=== PATIENT | female | born 1955 | race Caucasian/White ===

== ENCOUNTER 2017-03-02 07:25 | Day surgery (SDC) | payer OTHER ==
[2017-03-02] MEDS ORDERED: MIDAZOLAM 2 MG/2 ML VIAL IVP ONE (07:36)
[2017-03-02] MEDS ORDERED: ATROPINE SULFATE 1 MG/10 ML SYR IVP ONE (07:36)
[2017-03-02] MEDS ORDERED: fentaNYL 100 MCG/2 ML INJ IVP ONE (07:36)
[2017-03-02] MEDS ORDERED: BENZOCAINE UNIT DOSE SPRAY HURRICAINE MM ONE (07:36)
[2017-03-02] MEDS ORDERED: NS 500 ML IV ONE (07:36)
--- NOTE | 2017-03-02 07:56 | CPEKG ---
Heart Rate: 82 RR Interval: 732 QRSD Interval: 132 QT Interval: 396 QTC Interval: 463 QRS [place]: 39 T Wave [place]: 17 EKG Severity - ABNORMAL ECG - EKG Impression: ATRIAL FIBRILLATION, V-RATE 75-93 EKG Impression: RIGHT BUNDLE BRANCH BLOCK Electronically Signed By: Lisa Cm 02-Mar-2017 18:04:00
[2017-03-02 08:25] LABS: INR 1.77 (0.83-1.16); PROTIME(PATIENT) 20.7 SEC (12.0-15.0)
--- NOTE | 2017-03-02 08:59 | PDHPUP ---
History & Physical Update H&P update statement: This history and physical update is based on an assessment of the patient which was completed after admission or registration (within 24 hours), but prior to the surgery/procedure. H&P update: H&P reviewed & patient examined, no change in patient's condition since H&P completed
--- NOTE | 2017-03-02 09:03 | PDANEPAE ---
ANE History of Present Illness 61 yo for radha/cv ANE Past Medical History - Cardiovascular History Hx Hypertension: Yes Hx Arrhythmias: Yes Hx CHF / Valvular Disease: Yes - Pulmonary History Hx Sleep Apnea: No ANE Review of Systems Review of Systems: - Exercise capacity METS (RN): 4 METS ANE Patient History - Allergies Allergies/Adverse Reactions: acetaminophen [From Vicodin] Allergy (Unknown, Verified 07/23/09 13:11) SEVERE ITCHING caffeine [Caffeine] Allergy (Unknown, Verified 07/15/09 08:12) Unknown hydrocodone bitartrate [From Vicodin] Allergy (Unknown, Verified 07/23/09 13:11) SEVERE ITCHING METALS Allergy (Unknown, Uncoded 07/23/09 14:10) Unknown - Home Medications Home Medications: Calcium 500 + Vit D Caplet 1 PO DAILY 03/02/17 [Last Taken 03/01/17 06:30] Co Q-10 200 mg 200 mg PO DAILY 03/02/17 [Last Taken 03/01/17 20:30] Diltiazem 24Hr Cd 180 mg PO DAILY 03/02/17 [Last Taken 03/01/17 16:30] Enzymatic Digestant 1 PO DAILY 03/02/17 [Last Taken 03/01/17 06:00] Fish Oil 1,000 mg Capsule 1 PO DAILY 03/02/17 [Last Taken 03/01/17 14:30] Folic Acid 800 mcg PO DAILY 03/02/17 [Last Taken 03/01/17 14:30] Herbals/Supplements -Info Only 03/02/17 [Last Taken 03/01/17 14:30] Levothyroxine 137 mcg PO DAILY 03/02/17 [Last Taken 03/02/17 05:30] Losartan Potassium 100 mg PO DAILY 03/02/17 [Last Taken 03/01/17 20:30] Multivitamin 1 PO DAILY 03/02/17 [Last Taken 03/01/17 14:30] Resveratrol 50 mg PO DAILY 03/02/17 [Last Taken 03/01/17 14:30] Xarelto 20 mg PO DAILY 03/02/17 [Last Taken 03/01/17 20:30] - Smoking Hx Smoking Status: Former smoker ANE Labs/Vital Signs - Labs Result Diagrams: 03/02/17 08:00 - Vital Signs Height: 5 ft 2.4 in Weight: 92.2 kg ANE Physical Exam - Airway Neck exam: FROM Mallampati Score: Class 2 Mouth exam: normal dental/mouth exam - Pulmonary Pulmonary: no respiratory distress - Cardiovascular Cardiovascular: regular rate and rhythym - ASA Status ASA Status: II ANE Anesthesia Plan Anesthesia Plan: GA with mask
[2017-03-02] MEDS ORDERED: PROPOFOL 200 MG/20 ML VIAL ONE ×2 (09:04→09:11)
--- NOTE | 2017-03-02 09:31 | PDTEE1 ---
ADILSON Cardioversion Procedure Procedure: electrical cardioversion, transesophageal echo Indications: atrial fibrillation Consent: signed and in chart Anticoagulation: xarelto Procedural Details: Pads were placed in anterior-posterior position. ADILSON probe was advanced and standard images obtained. There is no evidence of left atrial or left atrial appendage thrombus. Synchronized cardioversion attempt #1: 200J Results: normal sinus rhythm Conclusions: successful ADILSON cardioversion
--- NOTE | 2017-03-02 09:51 | CPEKG ---
Heart Rate: 83 RR Interval: 723 P-R Interval: 224 QRSD Interval: 138 QT Interval: 436 QTC Interval: 513 P [place]: -70 QRS [place]: 56 T Wave [place]: -88 EKG Severity - ABNORMAL ECG - EKG Impression: SINUS RHYTHM EKG Impression: SUPRAVENTRICULAR BIGEMINY EKG Impression: FIRST DEGREE AV BLOCK EKG Impression: RIGHT BUNDLE BRANCH BLOCK EKG Impression: SINUS RHYTHM NOW PRESENT COMPARED WITH 03/02/2017 AT 7:54 Electronically Signed By: Lisa Cm 02-Mar-2017 18:04:22
--- NOTE | 2017-03-02 10:42 | POSTANESTH ---
Post Anesthetic Evaluation Cardiovascular Status: Normal, Stable Respiratory Status: Normal, Stable Level of Consciousness/Mental Status: Can Participate in Eval Pain Control: Adequate, Prn Tx Ordered Nausea/Vomiting Control: Adequate, Prn Tx Ordered Complications Possibly Related to Anesthesia: None Noted
== END 2017-03-02 11:30 | disposition home or self-care (01) ==
LOC: FCATH 07:25
PROVIDERS: ATTEND Internal Medicine Interventional Cardiology
PROC: B245ZZ4 Ultrasonography of Left Heart, Transesophageal (ICD-10-PCS; principal; 2017-03-02)
PROC: 5A2204Z Restoration of Cardiac Rhythm, Single (ICD-10-PCS; principal; 2017-03-02)
DX: I48.1 Persistent atrial fibrillation (principal); I10 Essential (primary) hypertension; I25.10 Atherosclerotic heart disease of native coronary artery without angina pectoris; I65.29 Occlusion and stenosis of unspecified carotid artery; Q23.1 Congenital insufficiency of aortic valve; Q21.1 Atrial septal defect; Z88.5 Allergy status to narcotic agent
CPT/HCPCS: J2704

== ENCOUNTER 2017-04-23 11:46 | Day surgery (SDC) | payer OTHER ==
[2017-04-23] MEDS ORDERED: MIDAZOLAM 2 MG/2 ML VIAL IVP ONE (11:56)
[2017-04-23] MEDS ORDERED: NS 500 ML IV ONE (11:56)
[2017-04-23] MEDS ORDERED: ATROPINE SULFATE 1 MG/10 ML SYR IVP ONE (11:56)
[2017-04-23] MEDS ORDERED: fentaNYL 100 MCG/2 ML INJ IVP ONE (11:56)
--- NOTE | 2017-04-23 12:08 | CPEKG ---
Heart Rate: 90 RR Interval: 667 QRSD Interval: 146 QT Interval: 428 QTC Interval: 524 QRS [place]: 55 T Wave [place]: -43 EKG Severity - ABNORMAL ECG - EKG Impression: ATRIAL FIBRILLATION EKG Impression: OCCASIONAL V PACED RHYTHM EKG Impression: RIGHT BUNDLE BRANCH BLOCK Electronically Signed By: Xavier Smith 23-Apr-2017 12:57:55
[2017-04-23 12:35] LABS: INR 1.53 (0.83-1.16); PROTIME(PATIENT) 18.5 SEC (12.0-15.0)
[2017-04-23] MEDS ORDERED: PROPOFOL 200 MG/20 ML VIAL ONE (13:42)
[2017-04-23] MEDS ORDERED: NALOXONE HCL 0.4 MG/ML INJ IVP PRN (13:59)
--- NOTE | 2017-04-23 13:59 | PDANEPAE ---
ANE History of Present Illness Cv ANE Past Medical History - Cardiovascular History Hx Hypertension: Yes Hx Arrhythmias: Yes Hx CHF / Valvular Disease: Yes - Pulmonary History Hx Sleep Apnea: No ANE Review of Systems Review of Systems: - Exercise capacity Exercise capacity: <4 METS ANE Patient History - Allergies Allergies/Adverse Reactions: acetaminophen [From Vicodin] Allergy (Unknown, Verified 07/23/09 13:11) SEVERE ITCHING caffeine [Caffeine] Allergy (Unknown, Verified 07/15/09 08:12) Unknown hydrocodone bitartrate [From Vicodin] Allergy (Unknown, Verified 07/23/09 13:11) SEVERE ITCHING METALS Allergy (Unknown, Uncoded 07/23/09 14:10) Unknown - Home Medications Home Medications: Calcium 500 + Vit D Caplet 1 PO DAILY 03/02/17 [Last Taken 03/01/17 06:30] Co Q-10 200 mg 200 mg PO DAILY 03/02/17 [Last Taken 03/01/17 20:30] Diltiazem 24Hr Cd 180 mg PO DAILY 03/02/17 [Last Taken 03/01/17 16:30] Enzymatic Digestant 1 PO DAILY 03/02/17 [Last Taken 03/01/17 06:00] Fish Oil 1,000 mg Capsule 1 PO DAILY 03/02/17 [Last Taken 03/01/17 14:30] Folic Acid 800 mcg PO DAILY 03/02/17 [Last Taken 03/01/17 14:30] Herbals/Supplements -Info Only 03/02/17 [Last Taken 03/01/17 14:30] Levothyroxine 137 mcg PO DAILY 03/02/17 [Last Taken 03/02/17 05:30] Losartan Potassium 100 mg PO DAILY 03/02/17 [Last Taken 03/01/17 20:30] Multivitamin 1 PO DAILY 03/02/17 [Last Taken 03/01/17 14:30] Resveratrol 50 mg PO DAILY 03/02/17 [Last Taken 03/01/17 14:30] Xarelto 20 mg PO DAILY 03/02/17 [Last Taken 03/01/17 20:30] - Smoking Hx Smoking Status: Former smoker ANE Labs/Vital Signs - Labs Result Diagrams: 04/23/17 12:20 - Vital Signs Height: 160.02 cm Weight: 83.915 kg ANE Physical Exam - Airway Neck exam: FROM Mallampati Score: Class 2 - Pulmonary Pulmonary: clear to auscultation - Cardiovascular Cardiovascular: irregularly irregular - ASA Status ASA Status: III ANE Anesthesia Plan Anesthesia Plan: GA with mask
--- NOTE | 2017-04-23 13:59 | POSTANESTH ---
Post Anesthetic Evaluation Cardiovascular Status: Normal, Stable Respiratory Status: Normal, Stable Level of Consciousness/Mental Status: Can Participate in Eval, Alert and Oriented Pain Control: Adequate, Prn Tx Ordered Nausea/Vomiting Control: Adequate, Prn Tx Ordered
[2017-04-23 15:24] VITALS: BP 141/96; RESP 14; O2SAT 93
--- NOTE | 2017-04-26 11:05 | CPEKG ---
Heart Rate: 67 RR Interval: 896 P-R Interval: 208 QRSD Interval: 148 QT Interval: 452 QTC Interval: 478 P [place]: 264 QRS [place]: 42 T Wave [place]: -56 EKG Severity - ABNORMAL ECG - EKG Impression: SINUS OR ECTOPIC ATRIAL RHYTHM EKG Impression: ATRIAL PREMATURE COMPLEX EKG Impression: RIGHT BUNDLE BRANCH BLOCK EKG Impression: SINUS RHYTHM/ECTOPIC ATRIAL RHYTHM HAS REPLACED ATRIAL FIBRILLATION NOTED ON EKG Impression: PRIOR ECG Electronically Signed By: Cole Cardenas 26-Apr-2017 15:41:24
== END 2017-04-23 15:42 | disposition home or self-care (01) ==
LOC: FCATH 11:46
PROVIDERS: ATTEND Internal Medicine Cardiovascular Disease
PROC: 5A2204Z Restoration of Cardiac Rhythm, Single (ICD-10-PCS; principal; 2017-04-23)
DX: I48.0 Paroxysmal atrial fibrillation (principal); Q23.1 Congenital insufficiency of aortic valve; Q21.1 Atrial septal defect; I25.10 Atherosclerotic heart disease of native coronary artery without angina pectoris; I10 Essential (primary) hypertension; E03.9 Hypothyroidism, unspecified; Z85.3 Personal history of malignant neoplasm of breast; Z82.49 Family history of ischemic heart disease and other diseases of the circulatory system; Z95.2 Presence of prosthetic heart valve
CPT/HCPCS: J2704

== ENCOUNTER → 2018-04-19 | Outpatient (CLI) | payer OTHER ==
[~2018-04-19] MED LIST: IOPAMIDOL (ISOVUE 370) 100 ML BTL IV ONE
== END ==
LOC: FIMAGING 07:45
PROVIDERS: ATTEND Internal Medicine Cardiovascular Disease
DX: I48.91 Unspecified atrial fibrillation (principal); J45.909 Unspecified asthma, uncomplicated; Z98.890 Other specified postprocedural states
CPT/HCPCS: Q9967

== ENCOUNTER 2018-04-26 10:36 | Observation (INO) | payer OTHER ==
[2018-04-26] MEDS ORDERED: NS 1,000 ML IV ONE (10:42)
--- NOTE | 2018-04-26 11:22 | PDGENHP ---
History & Physical Chief Complaint: symptomatic afib Relevant Physical Exam: [id number]. cta ao3 Cardiorespiratory Assessment: for afib ablation
[2018-04-26] MEDS ORDERED: HEPARIN/DEXTROSE 25,000 UNIT/500 ML BAG ONE (11:25)
[2018-04-26] MEDS ORDERED: HEPARIN 10,000 UNIT/10 ML MDV (1,000 UNIT/ML) ONE (11:25)
[2018-04-26] MEDS ORDERED: LIDOCAINE 1% 300 MG/30 ML SDV ONE (11:25)
[2018-04-26] MEDS ORDERED: BUPIVACAINE 0.75% 10 ML SDV ONE (11:26)
[2018-04-26] MEDS ORDERED: IOPAMIDOL (ISOVUE-300) 100 ML BTL ONE (11:26)
[2018-04-26] MEDS ORDERED: MIDAZOLAM 2 MG/2 ML VIAL IVP ONE (11:39)
--- NOTE | 2018-04-26 11:42 | PDANEPAE ---
ANE Past Medical History - Cardiovascular History Hx Hypertension: Yes Hx Arrhythmias: Yes Hx CHF / Valvular Disease: Yes Cardiovascular History Comment: Oopen Heart Surgery with AVR due to bicuspid valve and arch repair. - Pulmonary History Hx COPD: No Hx Asthma/Reactive Airway Disease: No Hx Sleep Apnea: No - Neurologic History Hx Cerebrovascular Accident: No - Endocrine History Hypothyroid: Yes - Renal History Hx Renal Disorders: No - Liver History Hx Hepatic Disorders: No - Surgical History Prior Surgeries: Open Heart Surgery ANE Review of Systems Review of Systems: ANE Patient History - Allergies Allergies/Adverse Reactions: acetaminophen [From Vicodin] Allergy (Unknown, Verified 07/23/09 13:11) SEVERE ITCHING caffeine [Caffeine] Allergy (Unknown, Verified 07/15/09 08:12) Unknown hydrocodone bitartrate [From Vicodin] Allergy (Unknown, Verified 07/23/09 13:11) SEVERE ITCHING amoxicillin Allergy (Verified 04/20/18 17:48) Hives METALS Allergy (Unknown, Uncoded 07/23/09 14:10) Unknown - Home Medications Home Medications: Diltiazem [Cardizem] 120 mg PO DAILY #0 03/02/17 [Last Taken 03/01/17 16:30] Folic Acid 0.8 mg PO DAILY #0 03/02/17 [Last Taken 03/01/17 14:30] Herbals/Supplements -Info Only 1 ea PO DAILY #0 03/02/17 [Last Taken 03/01/17 14 :30] Levothyroxine [Synthroid 137 mcg (*)] 137 mcg PO DAILY06 #0 03/02/17 [Last Taken 03/02/17 05:30] Losartan Potassium 50 mg PO DAILY #0 03/02/17 [Last Taken 03/01/17 20:30] Multivitamins [Multivitamin (*)] 1 each PO DAILY #0 03/02/17 [Last Taken 14:30] Resveratrol 50 mg PO DAILY #0 03/02/17 [Last Taken 03/01/17 14:30] Rivaroxaban [Xarelto] 20 mg PO DAILY #0 03/02/17 [Last Taken 03/01/17 20:30] Cholecalciferol Vit D3 [Vitamin D3 (*)] 4,000 units PO DAILY 04/20/18 [Last Taken Unknown] Flecainide Acetate 50 mg PO BID 04/20/18 [Last Taken Unknown] - Smoking Hx Smoking Status: Former smoker ANE Labs/Vital Signs - Vital Signs Height: 160.02 cm Weight: 88.451 kg ANE Physical Exam - Airway Neck exam: FROM Mallampati Score: Class 2 Mouth exam: normal dental/mouth exam - Pulmonary Pulmonary: no respiratory distress, no rales or rhonchi, clear to auscultation - Cardiovascular Cardiovascular: no murmur, rub, or gallop, irregularly irregular - ASA Status ASA Status: III ANE Anesthesia Plan Anesthesia Plan: general endotracheal anesthesia
[2018-04-26] MEDS ORDERED: fentaNYL 100 MCG/2 ML INJ ONE (11:59)
[2018-04-26] MEDS ORDERED: DEXAMETHASONE 4 MG/ML VIAL ONE (11:59)
[2018-04-26] MEDS ORDERED: ONDANSETRON 4 MG/2 ML VIAL ONE (11:59)
[2018-04-26 12:27] LABS: PLATELET COUNT 200 10^3/uL (150-400)
[2018-04-26 12:39] LABS: INR 1.12 (0.83-1.16)
--- NOTE | 2018-04-26 13:05 | CPEKG ---
Test Reason : OPEN Blood Pressure : / mmHG Vent. Rate : 106 BPM Atrial Rate : 106 BPM P-R Int : 157 ms QRS Dur : 134 ms QT Int : 387 ms P-R-T Axes : 269 043 -04 degrees QTc Int : 514 ms Junctional tachycardia (given lack of 'p" waves PVCs Right bundle branch block Repol abnrm suggests ischemia, diffuse leads Confirmed by Cole Cardenas ([id number]) on 04/26/2018 1:04:50 PM Referred By: Eduardo Richards Confirmed By:Cole Cardenas
[2018-04-26] MEDS ORDERED: PROPOFOL 200 MG/20 ML VIAL ONE ×2 (13:17→13:41)
[2018-04-26] MEDS ORDERED: ePHEDrine SULFATE 25 MG/5 ML SYR ONE ×2 (13:37→14:12)
[2018-04-26] MEDS ORDERED: PHENYLEPHRINE HCL 100 MCG/ML SYR ONE (13:37)
[2018-04-26] MEDS ORDERED: ROCURONIUM 50 MG/5 ML VIAL ONE (13:41)
[2018-04-26] MEDS ORDERED: GLYCOPYRROLATE 0.2 MG/1 ML VIAL ONE ×3 (14:29→14:33)
[2018-04-26] MEDS ORDERED: PROTAMINE SULFATE 50 MG/5 ML VIAL IVP ONE (14:59)
--- NOTE | 2018-04-26 15:13 | EPPROC ---
Electrophysiology Procedure Note: ELECTROPHYSIOLOGIC STUDY AND BALLOON-CATHETER MEDIATED CRYOABLATION FOR ATRIAL FLUTTER AND PAROXYSMAL ATRIAL FIBRILLATION Procedures performed: 17667-53 EP evaluation with RA/RV/LA pace/record, with arrhythmia induction 50065-93 EP evaluation with RA/RV pace record, insert/reposition catheter, with arrhythmia induction 24829 Atrial fibrillation ablation Second arrhythmia Intracardiac echocardiogram Transseptal puncture Fluoroscopy INDICATION: Paroxysmal atrial fibrillation Atrial tachycardia/flutter PROCEDURE: The patient arrived in the Electrophysiology Laboratory in the fasting state. The right groin, left groin and right infraclavicular area were prepped and draped in the usual sterile fashion. Anesthesiologist administered general anesthesia. All catheters were placed percutaneously using the Seldinger technique and advanced into position under fluoroscopic guidance. One #7 Swedish deflectable octapolar electrode catheter was placed in the His-bundle position via the left femoral vein (2mm spacing, IVC electrode for unipolar recordings). This catheter was placed in the coronary sinus after transseptal puncture and later placed in the SVC-R subclavian vein junction to pace the right phrenic nerve during right pulmonary vein ablation. One #8 Swedish AcuNaV ultrasound catheter was placed in the left femoral vein and advanced into the right atrium. Programmed stimulation was performed from the right atrium, left atrium (CS) and right ventricle. Pt arrived to EP lab in AT/AFL CL 310 ms. Entrainment from Halo and CS catheter proved AFL. CT isthmus was ablated using 3.5 mm STSF catheter achieving bidirectional conduction block. Intracardiac echo evaluation of the left atrium and pulmonary veins was performed. Baseline ACT was drawn and heparin bolus was administered and heparin drip was started prior to transseptal puncture. ACT was checked every 15 minutes and maintained in the range of 350-400 seconds. One 14Fr short sheath was placed in the right femoral vein. One 8Fr SL1 sheath was advanced into the right atrium via the 14Fr short sheath. Transseptal puncture was performed under intracardiac ultrasound, fluoroscopic and hemodynamic guidance placing the sheath into the left atrium. [place] RF needle ( C0 curve) was used. The mean left atrial pressure was 15 mmHg. The SL1 sheath was exchanged for a [employer]cath sheath guide wire. A 28 mm Cryoballoon catheter with a 20 mm Achieve catheter was placed via the sheath into the left atrium. Intracardiac ultrasound and PV angiograms were used to assist in placing the mapping catheter at the antrum of the pulmonary veins. All pulmonary veins were isolated successfully using cryoballoon ablation using freeze/thaw/freeze cycles at 2-3-minute intervals, with good [id number] of isolation. Coumadin ridge/Ligament of Ab region was ablated. Pre and post pulmonary vein recordings were measured on the spiral Achieve catheter to ensure complete pulmonary vein isolation. During the right-sided ablation, phrenic nerve pacing was performed to assess the phrenic nerve strength ( manually and with ICE visualization of liver movement during phrenic capture) and the phrenic nerve was intact throughout the right-sided ablation and at the end of the procedure. An esophageal temperature probe (12 electrode, Circa) was placed by the anesthesiologist at the beginning of the procedure. Esophageal temperature was monitored continuously and cryoablation was interrupted if esophageal temperature was <15 C. Cryoapplications 7 total cryoablation time 1134 s. ICE imaging post ablation was consistent with pre ablation imaging with no changes noted, moreover there was no left atrial/left ventricular thrombus and no pericardial effusion. The catheters were withdrawn. Protamine was given. Venous vascular access sheaths were removed in the EP lab after placing subcutaneous pursestring suture. The patient was recovered from anesthesia. There were no complications. The patient was arousable and moving all four extremities at the end of the procedure. CONCLUSIONS: 1. Atrial flutter, CT isthmus dependent. Successful ablation. 2. Paroxysmal atrial fibrillation. 3. Successful pulmonary vein isolation procedure (left and right pulmonary vein antrum) using cryoballoon ablation. 4. No apparent complications. Patient Problems: Problems Problem Status Onset Afib Acute
[2018-04-26] MEDS: RIVAROXABAN 20 MG TAB PO SCH (21:26)
[2018-04-27 06:08] LABS: PLATELET COUNT 198 10^3/uL (150-400)
[2018-04-27] MEDS ORDERED: PANTOPRAZOLE SODIUM 40 MG TAB PO SCH (09:00)
[2018-04-27] MEDS ORDERED: LOSARTAN POTASSIUM 50 MG TAB PO SCH (09:00)
[2018-04-27] MEDS ORDERED: DILTIAZEM CD 120 MG CAP PO SCH (09:00)
[2018-04-27 10:05] VITALS: BP 106/71
[2018-04-27] MEDS: RIVAROXABAN 20 MG TAB PO SCH (10:40)
--- NOTE | 2018-04-27 11:19 | CPEKG ---
Test Reason : OPEN Blood Pressure : / mmHG Vent. Rate : 122 BPM Atrial Rate : 000 BPM P-R Int : 476 ms QRS Dur : 139 ms QT Int : 361 ms P-R-T Axes : 000 063 -51 degrees QTc Int : 515 ms Junctional tachycardia Right bundle branch block Nonspecific repol abnormality, lateral leads Confirmed by True Rogers ([id number]) on 04/27/2018 11:19:18 AM Referred By: Eduardo Richards Confirmed By:True Rogers
--- NOTE | 2018-04-27 11:20 | CPEKG ---
Test Reason : OPEN Blood Pressure : / mmHG Vent. Rate : 076 BPM Atrial Rate : 077 BPM P-R Int : 203 ms QRS Dur : 139 ms QT Int : 435 ms P-R-T Axes : -13 074 035 degrees QTc Int : 490 ms Sinus rhythm Atrial premature complexes Right bundle branch block Confirmed by True Rogers ([id number]) on 04/27/2018 11:19:43 AM Referred By: Eduardo Richards Confirmed By:True Rogers
--- NOTE | 2018-04-27 11:24 | CPEKG ---
Test Reason : OPEN Blood Pressure : / mmHG Vent. Rate : 074 BPM Atrial Rate : 000 BPM P-R Int : 182 ms QRS Dur : 137 ms QT Int : 417 ms P-R-T Axes : 000 041 -26 degrees QTc Int : 463 ms Sinus rhythm Multiple premature complexes, vent & supraven Right bundle branch block Confirmed by True Rogers ([id number]) on 04/27/2018 11:24:15 AM Referred By: Eduardo Richards Confirmed By:True Rogers
--- NOTE | 2018-04-27 11:30 | ASDISCHSUM ---
Discharge Information Plan Status:Home with No Needs Medically Cleared to Leave:04/27/2018 Discharge Date:04/27/2018 CM D/C Disposition:Home, Routine, Self-Care ADT D/C Disposition:Home, Routine, Self-Care Projected Discharge Date:04/27/2018 Transportation at D/C: Discharge Delay Reason: Follow-Up Date:04/27/2018 Discharge Slot: Final Diagnosis: Placement Information Patient Contact Information Contact Name:ROSELYN Relationship: Address:[facility] [address] [address] Work Phone: City:[facility] Phone: [facility] Code:[id number] Email: Financial Information Financial Class:[employer] Primary Plan Desc:[employer] HMO OPEN ACC LOCAL Primary Plan Number:[id number] Secondary Plan Desc: Secondary Plan Number: Assessment Information Intervention Information
--- NOTE | 2018-04-27 11:31 | ASMTDCNOTE ---
Case Management Discharge Discharge Order Complete? Answers: Yes Patient to Obtain Answers: via Family Medications Transportation Arranged Answers: Family/Friends Discharge Comments Notes: Pt is 63 yo F in for cryo ablation. being discharged independently with outpatient follow-up as indicated. No CM needs identified at this time. Family to transport. Date Signed: 04/27/2018 11:31 AM Electronically Signed By:KARMA Ramirez
--- NOTE | 2018-04-27 11:32 | ASMTLACE ---
LACE Length of stay for Answers: Less than 1 day current admission Acuity / Level of Answers: No Care: Did the patient have an inpatient admission? Comorbidities - select Answers: Congestive heart failure all that apply Other Notes: HTN; Hypothyroid # of Emergency department Answers: 0 visits in the last 6 months Score: 3 Date Signed: 04/27/2018 11:31 AM Electronically Signed By:KARMA Ramirez
--- NOTE | 2018-04-27 12:25 | GDS ---
[f rep st] DISCHARGE SUMMARY SUPERVISING LAMP ASSEMBLER: Eduardo Richards MD. ADMISSION DIAGNOSES: Atrial fibrillation and atrial flutter. DISCHARGE DIAGNOSES: Atrial fibrillation and atrial flutter status post successful ablation. PROCEDURES PERFORMED DURING HOSPITALIZATION: 1. Electrocardiogram. 2. Echocardiogram. 3. Electrophysiology study. 4. Atrial flutter ablation. 5. Atrial fibrillation ablation. HOSPITAL COURSE: Patient presented 04/26/2018, for atrial fibrillation and atrial flutter ablation in the setting of increasingly frequent and symptomatic episodes of atrial arrhythmias. She underwent successful ablation of her CT isthmus dependent atrial flutter and successful pulmonary vein isolation for management of paroxysmal atrial fibrillation. The patient had no intra- procedural complications, and she has done very well in the postprocedure setting. She did have a brief episode of what appeared to be junctional tachycardia noted on telemetry immediately post-procedure. She spontaneously converted to normal sinus rhythm shortly thereafter without recurrence since that time. She has been ambulating around her room this morning without issue, and she is appropriate and stable for discharge home today. CURRENT PHYSICAL EXAMINATION: GENERAL: Alert and oriented x4. No apparent distress. VITAL SIGNS: Blood pressure 106/71, heart rate 71, respiratory rate 14, SpO2 91% on room air, temp 37.0 degrees Celsius. RESPIRATORY: Lungs are clear to auscultation with no adventitious breath sounds. CARDIAC: Normal S1 and S2. No S3, S4. Rhythm is regular. ABDOMEN: Normoactive bowel sounds times all 4 quadrants. No masses or tenderness. Soft to palpation. SKIN: [place], warm, dry without cyanosis, clubbing, or peripheral edema. EXTREMITIES: Bilateral pursestring sutures removed intact without evidence of hematoma, redness, oozing, swelling, or warmth. Pulses 2+ bilaterally. No edema. LABORATORY STUDIES: Drawn today: CBC and BMP are relatively stable compared to preprocedure. Troponin is 4.070, elevated troponin is to be expected in the postprocedure setting. PROCEDURES: Electrophysiology study, atrial fibrillation ablation and atrial flutter ablation as mentioned above. Preliminary echocardiogram this morning demonstrates stable left ventricular systolic function without new wall motion abnormalities or pericardial effusion. Electrocardiogram this morning demonstrates normal sinus rhythm with isolated unifocal PVCs and without new ST- T-wave or [place]-interval abnormalities. DISCHARGE DISPOSITION: Patient will be discharged home in stable condition. She is under activity restrictions as below. DISCHARGE MEDICATIONS: Please see discharge medication reconciliation sheet for full details. Please note, the patient was restarted on her Xarelto, and she understands that she may not hold this medication for any reason within the next 3 months without having this cleared by our electrophysiology team. She will also continue an antacid daily for GI prophylaxis post procedure for 6 weeks. Her Diltiazem has been discontinued due to low-normal BPs post-procedure. DISCHARGE INSTRUCTIONS: Post atrial fibrillation and atrial flutter ablation instructions reviewed in detail with patient. 1. We discussed activity restrictions including lifting no more than 10 pounds and avoidance of submerged bathing for 10 days. 2. She will get up and walk around every 45 minutes for 45 days. 3. She will avoid unpressurized air travel or scuba diving for the next 6 months and she will present to our clinic for an echocardiogram prior to engaging in either of these activities. 4. We also reviewed bleeding precautions, medication compliance, monitoring for signs and symptoms of infection, monitoring for atrioesophageal fistula, and monitoring for sustained arrhythmia. At the time of discharge, patient verbalized understanding regarding discharge instructions without questions or concerns. She has a followup visit scheduled on May 12, and she will contact the [facility] with any new or concerning symptoms prior to upcoming visit. TIME SPENT ON DISCHARGE: Greater than 30 minutes. /[id number]/MODL MTDD
--- NOTE | 2018-04-27 13:08 | ECHO ---
[email or web address] [address] [address] Main: [phone] Echocardiography Examination Transthoracic Name: RESHMA DC MR#: [id number] Study Date: 04/27/2018 Study Time: 08:07 AM Date of : 1955 Age: 63 year(s) Height: 160 cm (63 in.) Weight: 88.45 kg (195 lb.) BSA: 1.91 m2 Gender: Female Examination: Echo Contrast: Image Quality: Adequate Rhythm: Heart Rate: BP: 130 mmHg/69 mmHg Indication: F/U Post EP Study Procedure Staff Referring Physician: Shake Packer: Natacha Sams [facility] Reading Physician: Bang Scott MD Requesting Provider: Ordering Physician: Eduardo Richards MD Indication: F/U Post EP Study Measurements Chambers AV/MV Label Value Normal Value Label Value Normal Value IVSd, 2D 1.1 cm (0.6cm - 1.1cm) AV PGmax 22 mmHg LVDd, 2D 3.3 cm (3.9cm - 5.3cm) AV PGmean 13 mmHg LVDs, 2D 2.2 cm (2.1cm - 4cm) AV Vmax 2.33 m/s LVEF, 2D 63 % (54% - 74%) RM D (continuity eq. 0.7 cm2 LVEF, MOD4 55 % (55% - 70%) VTI) LVOT PGmean 2 mmHg MV A Vmax 0.42 m/s LVOT Vmean 0.6 m/s MV DT 165 ms LVOTd 1.6 cm (1.8cm - 2cm) MV E' lateral 0.1 m/s LVPWd, 2D 1 cm MV E Vmax 1.21 m/s RVDd, 2D 4.6 cm (1.9cm - 3.8cm) MV E/A 2.88 LADs, 2D 4.7 cm (2.7cm - 3.8cm) MV E/E' lateral 12.4 LAESV index, BP 37.7 ml/m2 MV PHT 0.05 s Additional Vessels MV PHT 49 ms Label Value Normal Value MVA PHT 4.5 cm2 AoAsc 2.4 cm TV/PV AoRoot, 2D 2.1 cm (1.4cm - 2.6cm) Label Value Normal Value RA Pressure 5 mmHg RVSP 28 mmHg TR Pmax 23 mmHg Patient: RESHMA DC Study Date: 04/27/2018 Page 1 of 3 08:07 AM TR Vmax 2.38 m/s PV PGmax 2 mmHg PV Vmax, Caliper 0.75 m/s (0.6m/s - 0.9m/s) Conclusions Left Ventricle: EF range is estimated at 55 % - 60 %. Right Ventricle: Dilated right ventricle. The RV function appears grossly normal. Mitral Valve: Moderate mitral regurgitation. 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 Normal functioning aortic valve prosthesis. Tricuspid Valve: Moderate tricuspid regurgitation. Right Ventricular systolic pressure is measured at 28 mmHg. Findings Left Ventricle: Left ventricle is normal in size. Normal global systolic left ventricular function. The ejection fraction, measured by MOD4, is 55 %. EF range is estimated at 55 % - 60 %. Left ventricle wall thickness is normal. There are no regional wall motion abnormalities. Grade III Diastolic Dysfunction. Right Ventricle: Dilated right ventricle. The RV function appears grossly normal. Dilated right ventricle. Left Atrium: The left atrium is mildly to moderately dilated. IAS: Left to right shunt across the interatrial septum consistent with transseptal puncture. Mitral Valve: Mitral valve appears structurally normal. Moderate mitral regurgitation. No mitral valve stenosis. 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 The prosthetic aortic valve is normal. Normal functioning aortic valve prosthesis. No prosthesis regurgitation. Tricuspid Valve: Tricuspid valve leaflets are structurally normal. Moderate tricuspid regurgitation. No tricuspid valve stenosis. Right Ventricular systolic pressure is measured at 28 mmHg. Pulmonary artery pressure normal. Pulmonic Valve: Pulmonic leaflets are structurally normal. Mild pulmonic valve regurgitation is present. Aorta: The aortic root size in 2D measures 2.1 cm. The ascending aorta measures 2.4 cm. Aorta Measurements AoRoot, 2D is 2.1 cm. Exam Details Procedure Ordered: Echo Procedure Status: Routine study Patient: RESHMA DC Study Date: 04/27/2018 Page 2 of 3 08:07 AM Image Quality: Adequate Facility Location: Cardiac Echo 1 (No Signature Object) Patient: RESHMA DC Study Date: 04/27/2018 Page 3 of 3 08:07 AM [id number]
== END 2018-04-27 11:40 | disposition home or self-care (01) ==
LOC: FCATH 10:36 → F2N 13:34
PROVIDERS: ADMIT Internal Medicine Cardiovascular Disease; ATTEND Internal Medicine Cardiovascular Disease
PROC: B245ZZZ Ultrasonography of Left Heart (ICD-10-PCS; principal; 2018-04-26)
PROC: 02K83ZZ Map Conduction Mechanism, Percutaneous Approach (ICD-10-PCS; principal; 2018-04-26)
PROC: 02583ZZ Destruction of Conduction Mechanism, Percutaneous Approach (ICD-10-PCS; principal; 2018-04-26)
DX: I48.91 Unspecified atrial fibrillation (principal); I48.92 Unspecified atrial flutter; Z79.01 Long term (current) use of anticoagulants
CPT/HCPCS: 93005; 93306; 93312; 93613; 93655; 93656; 93662; C1893; G0378; C1730; C1731; C1732; C1733; C1759; C1766; C1769; J1100; J1644; J2250; J2370; J2405; J2704; J2720; J3010; Q9967

== ENCOUNTER → 2018-07-28 | Day surgery (SDC) | payer OTHER | LOC: FCATH 06:44 ==